=== PATIENT | male | born 1950 | race Two or more races ===

== ENCOUNTER 2016-03-27 21:28 | Inpatient (IN) | payer MEDICAID ==
[~2016-03-27] VITALS: Ht 170.2 cm; Wt 46.7 kg
[~2016-03-27 21:28] MED LIST: ACET-868 GT; ALBU2.5V38 IH; AMIN30LI2 GT; ASCO500T8 GT; BISA10SU8 RC; CALC1TAB30 GT; CRAN3875 GT; DEXT1DRO6 EACHEYE; DOCU50LI GT; EPOE1VIA6 IM; ESOM40CA GT; FERR1TAB44 GT; FOLI1TAB16 GT; HYDR-3326 GT; LACT10SO29 GT; MAGN400O4 GT; MAGN400T30 GT; MULT1TAB11 GT; NA P133E RC; ONDA4TAB5 GT; THIA100T13 GT; ZINC220T GT
[2016-03-27 22:30] LABS: BASOPHILS % (AUTO) 0.4 % (0.0-2.0); DIFF TOTAL % 100 %; EOSINOPHILS # (AUTO) 1.6 /CMM (0.0-0.7); EOSINOPHILS % (AUTO) 24.5 % (0.0-6.0); HEMATOCRIT 30 % (39-51); HEMOGLOBIN 9.7 g/dL (13.5-17.5); LYMPHOCYTES # (AUTO) 0.9 /CMM (0.8-4.8); LYMPHOCYTES % (AUTO) 13.5 % (20.0-44.0); MEAN CORPUSCULAR HEMOGLOBIN 32 PG (26.0-33.0); MEAN CORPUSCULAR HGB CONC 33 g/dl (31.0-36.0); MEAN CORPUSCULAR VOLUME 97 fL (80-96); MONOCYTES # (AUTO) 0.4 /CMM (0.1-1.30); MONOCYTES % (AUTO) 6.4 % (2.0-12.0); NEUTROPHILS # (AUTO) 3.5 /CMM (1.8-8.9); NEUTROPHILS % (AUTO) 55.2 % (43.0-81.0); PLATELET COUNT (AUTO) 183 /CMM (150-450); RED BLOOD CELL COUNT(AUTO) 3.06 MIL/uL (4.5-6.0); WHITE BLOOD COUNT (AUTO) 6.3 K/uL (4.3-11.0)
[2016-03-27 22:40] LABS: CREATININE 0.5 mg/dL (0.6-1.3); POTASSIUM 4.2 mmol/L (3.5-5.1)
[2016-03-27 22:46] LABS: BILIRUBIN,TOTAL 0.2 mg/dL (0.2-1.0); TOTAL PROTEIN, SERUM 7.6 g/dL (6.4-8.2)
[2016-03-27 23:27] LABS: INR 1.05 (0.87-1.13); PROTHROMBIN TIME 11.4 SECS (9.5-12.7)
[2016-03-28] VITALS: BP 97/61
[2016-03-28 00:04] LABS: ADD UA MICROSCOPIC YES; KETONES,URINE NEG (NEGATIVE); LEUKOCYTE ESTERASE ,URINE 3+ (NEGATIVE)
[2016-03-28 00:06] LABS: ADD URINE CULTURE YES; RBC,URINE TOO NUMEROUS TO COUN /HPF (0-2); WBC,URINE TOO NUMEROUS TO COUN /HPF (0-3)
[2016-03-28 00:33] LABS: ANISOCYTOSIS 1+; BAND % (MANUAL) 3 % (0.0-5.0); BASOPHILS % (MANUAL) 0 % (0.0-2.0); EOSINOPHILS % (MANUAL) 27 % (0-4); LYMPHOCYTES % (MANUAL) 17 % (16-48); PLATELET ESTIMATE ADEQUATE
[2016-03-28] MEDS ORDERED: CEFTRIAXONE 1GM BAG (ER ONLY) 50 ML IV ONE (01:26)
[2016-03-28] MEDS ORDERED: IV SET PRIMARY PUMP SET 1 EA INFUS.SET MC ONE ×2 (01:26→03:50)
[2016-03-28] MEDS ORDERED: CEFTRIAXONE 1GM BAG (ER ONLY) 1 GM/50 ML PIGGYBACK IV ONE (01:30)
[2016-03-28] MEDS ORDERED: MAG HYDROX/AL HYDROX/SIMETH 30 ML UDC PO PRN (02:30)
[2016-03-28] MEDS ORDERED: ZOLPIDEM TARTRATE 5 MG TABLET PO PRN (02:30)
[2016-03-28] MEDS ORDERED: ENOXAPARIN SODIUM 40 MG/0.4 ML DISP.SYRIN SQ SCH (02:30)
[2016-03-28] MEDS ORDERED: MAGNESIUM HYDROXIDE 30 ML UDC PO PRN (02:30)
[2016-03-28] MEDS ORDERED: Z GUARD REMEDY 2 OZ OINT TP PRN (02:30)
[2016-03-28] MEDS ORDERED: ONDANSETRON HCL/PF 4 MG/2 ML VIAL IVP PRN (02:30)
[2016-03-28] MEDS ORDERED: LEVOFLOXACIN 500 MG /D5W 100ML 100 ML IV SCH (02:30)
[2016-03-28 03:00] VITALS: BP 98/55
[2016-03-28] MEDS ORDERED: IV NS 0.9% 1,000 ML ONE (03:50)
[2016-03-28] MEDS ORDERED: LEVOFLOXACIN 500 MG /D5W 100ML 100 ML IV ONE (03:51)
[2016-03-28 04:00] VITALS: BP 110/72
[2016-03-28] MEDS ORDERED: ENOXAPARIN SODIUM 40 MG/0.4 ML DISP.SYRIN SQ ONE (04:00)
[2016-03-28] MEDS: IV NS 0.9% 1,000 ML IV PRN ×2 (04:05→23:02)
[2016-03-28] MEDS ORDERED: SECONDARY IV SET 1 EA INFUS.SET MC ONE ×2 (04:08→12:37)
[2016-03-28] MEDS ORDERED: PIPERACILLIN /TAZOBACTAM 3.375 G VIAL IV ONE (04:45)
[2016-03-28] MEDS ORDERED: IV D5W 100 ML IV ONE (04:45)
[2016-03-28] MEDS ORDERED: PIPERACILLIN /TAZOBACTAM 3.375 G in IV D5W 100 ML IV SCH (05:00)
[2016-03-28 08:00] VITALS: BP 94/57
[2016-03-28 09:16] LABS: BASOPHILS % (AUTO) 0.5 % (0.0-2.0); DIFF TOTAL % 100 %; EOSINOPHILS # (AUTO) 0.6 /CMM (0.0-0.7); EOSINOPHILS % (AUTO) 11.3 % (0.0-6.0); HEMATOCRIT 29 % (39-51); HEMOGLOBIN 9.7 g/dL (13.5-17.5); LYMPHOCYTES # (AUTO) 0.9 /CMM (0.8-4.8); LYMPHOCYTES % (AUTO) 15.6 % (20.0-44.0); MEAN CORPUSCULAR HEMOGLOBIN 32 PG (26.0-33.0); MEAN CORPUSCULAR HGB CONC 33 g/dl (31.0-36.0); MEAN CORPUSCULAR VOLUME 97 fL (80-96); MONOCYTES # (AUTO) 0.4 /CMM (0.1-1.30); MONOCYTES % (AUTO) 6.4 % (2.0-12.0); NEUTROPHILS # (AUTO) 3.7 /CMM (1.8-8.9); NEUTROPHILS % (AUTO) 66.2 % (43.0-81.0); PLATELET COUNT (AUTO) 176 /CMM (150-450); RED BLOOD CELL COUNT(AUTO) 3.02 MIL/uL (4.5-6.0); WHITE BLOOD COUNT (AUTO) 5.6 K/uL (4.3-11.0)
[2016-03-28 09:31] LABS: CALCIUM, SERUM 8.2 mg/dL (8.5-10.1); CREATININE 0.5 mg/dL (0.6-1.3); PHOSPHORUS 2.8 mg/dL (2.5-4.9); POTASSIUM 4.3 mmol/L (3.5-5.1)
[2016-03-28] MEDS ORDERED: FEE PK DOSING 1 MIN EA MC ONE (10:19)
[2016-03-28] MEDS: VANCOMYCIN 1 GM in IV D5W 250 ML IV SCH ×2 (12:30→23:01)
[2016-03-28] MEDS: PIPERACILLIN /TAZOBACTAM 3.375 G in IV D5W 50 ML IV SCH ×2 (12:30→18:09)
[2016-03-28] MEDS: GLYTROL 1,000 ML BAG GT PRN (12:30)
[2016-03-28] MEDS: PANTOPRAZOLE 40 MG VIAL IV SCH (12:30)
[2016-03-28 16:00] VITALS: BP 92/55
[2016-03-29] VITALS: BP 96/56
[2016-03-29] MEDS: PIPERACILLIN /TAZOBACTAM 3.375 G in IV D5W 50 ML IV SCH ×5 (00:54→23:15)
[2016-03-29] MEDS ORDERED: LEVOFLOXACIN 250 MG /D5W 50 ML 250 MG in PREMIX 1 EA IV SCH (04:00)
[2016-03-29 07:36] LABS: CALCIUM, SERUM 8.3 mg/dL (8.5-10.1); CREATININE 0.5 mg/dL (0.6-1.3)
[2016-03-29 08:00] VITALS: BP 98/76
[2016-03-29] MEDS: PANTOPRAZOLE 40 MG VIAL IV SCH (08:58)
[2016-03-29] MEDS: ENOXAPARIN SODIUM 40 MG/0.4 ML DISP.SYRIN SQ SCH (08:59)
[2016-03-29] MEDS: VANCOMYCIN 1 GM in IV D5W 250 ML IV SCH ×2 (09:06→21:51)
[2016-03-29] MEDS: GLYTROL 1,000 ML BAG GT PRN (11:54)
[2016-03-29 12:00] VITALS: BP 97/57
[2016-03-29 14:11] LABS: IRON, SERUM 31 ug/dl (50-175); PERCENT SATURATION 23 % (14-33); TOTAL IRON BINDING CAPACITY 133 ug/dl (250-450)
[2016-03-29] MEDS ORDERED: ZINC220C8 GT (15:25)
[2016-03-29] MEDS ORDERED: FERR220S2 GT (15:25)
[2016-03-29] MEDS ORDERED: NUT.237L36 GT (15:25)
[2016-03-29] MEDS ORDERED: OMEP40CA37 GT (15:25)
[2016-03-29] MEDS ORDERED: DOCU50LI GT (15:25)
[2016-03-29] MEDS ORDERED: LACT10SO7 GT (15:25)
[2016-03-29] MEDS ORDERED: ASCO500S2 GT (15:25)
[2016-03-29] MEDS ORDERED: ACET-2605 GT (15:25)
[2016-03-29] MEDS ORDERED: ARGI1POW13 GT (15:25)
[2016-03-29] MEDS ORDERED: CLON0.1T GT (15:25)
[2016-03-29] MEDS ORDERED: IPRA0.2S9 IH ×2 (15:25)
[2016-03-29] MEDS ORDERED: MAG30ORA GT (15:25)
[2016-03-29 16:00] VITALS: BP 107/68
[2016-03-29] MEDS: IV NS 0.9% 1,000 ML IV PRN (18:48)
[2016-03-29 20:00] VITALS: BP 97/64
[2016-03-29] MEDS ORDERED: IVERMECTIN 3 MG TABLET PO ONE (20:00)
[2016-03-29] MEDS ORDERED: PERMETHRIN 5% CRM 60 GM TUBE TP ONE (20:00)
[2016-03-29] MEDS: LORATADINE 10 MG TABLET PO SCH (20:40)
[2016-03-30 04:00] VITALS: BP 114/67
[2016-03-30] MEDS: PIPERACILLIN /TAZOBACTAM 3.375 G in IV D5W 50 ML IV SCH ×2 (05:00→11:10)
[2016-03-30] MEDS: GLYTROL 1,000 ML BAG GT PRN (05:43)
[2016-03-30 08:00] VITALS: BP 113/54
[2016-03-30] MEDS: PANTOPRAZOLE 40 MG VIAL IV SCH (08:27)
[2016-03-30] MEDS: LORATADINE 10 MG TABLET PO SCH (08:27)
[2016-03-30] MEDS: ENOXAPARIN SODIUM 40 MG/0.4 ML DISP.SYRIN SQ SCH (08:29)
[2016-03-30 08:52] LABS: BASOPHILS % (AUTO) 0.1 % (0.0-2.0); EOSINOPHILS # (AUTO) 1.8 /CMM (0.0-0.7); HEMATOCRIT 25 % (39-51); HEMOGLOBIN 8.3 g/dL (13.5-17.5); LYMPHOCYTES # (AUTO) 1.3 /CMM (0.8-4.8); LYMPHOCYTES % (AUTO) 23.6 % (20.0-44.0); MEAN CORPUSCULAR HEMOGLOBIN 32 PG (26.0-33.0); MEAN CORPUSCULAR HGB CONC 33 g/dl (31.0-36.0); MEAN CORPUSCULAR VOLUME 98 fL (80-96); MONOCYTES # (AUTO) 0.5 /CMM (0.1-1.30); MONOCYTES % (AUTO) 8.4 % (2.0-12.0); NEUTROPHILS # (AUTO) 1.9 /CMM (1.8-8.9); NEUTROPHILS % (AUTO) 34.9 % (43.0-81.0); PLATELET COUNT (AUTO) 190 /CMM (150-450); RED BLOOD CELL COUNT(AUTO) 2.58 MIL/uL (4.5-6.0); WHITE BLOOD COUNT (AUTO) 5.6 K/uL (4.3-11.0)
[2016-03-30 08:58] LABS: DIFF TOTAL % 100 %
[2016-03-30 09:22] LABS: PHOSPHORUS 2.9 mg/dL (2.5-4.9)
[2016-03-30] MEDS: VANCOMYCIN 1 GM in IV D5W 250 ML IV SCH ×2 (09:27→22:28)
[2016-03-30 09:43] LABS: CALCIUM, SERUM 8.3 mg/dL (8.5-10.1); CREATININE 0.5 mg/dL (0.6-1.3); EOSINOPHILS % (MANUAL) 27 % (0-4); LYMPHOCYTES % (MANUAL) 28 % (16-48); POTASSIUM 3.9 mmol/L (3.5-5.1)
[2016-03-30 09:44] LABS: ANISOCYTOSIS 1+; PLATELET ESTIMATE ADEQUATE
[2016-03-30] MEDS ORDERED: HYDROGEL DRESSING 90 GM TUBE TP PRN (11:00)
[2016-03-30] MEDS: IV NS 0.9% 1,000 ML IV PRN (11:10)
[2016-03-30] MEDS: HYDROGEL DRESSING 90 GM TUBE TP SCH (12:44)
[2016-03-30] MEDS: CADEXOMER IODINE 40 GM TUBE TP SCH (12:44)
[2016-03-30] MEDS: MEROPENEM 500 MG in IV NS 0.9% 50 ML IV SCH (21:36)
[2016-03-31] MEDS: GLYTROL 1,000 ML BAG GT PRN (03:42)
[2016-03-31] MEDS: MEROPENEM 500 MG in IV NS 0.9% 50 ML IV SCH ×3 (04:09→21:56)
[2016-03-31 07:49] LABS: CALCIUM, SERUM 8.2 mg/dL (8.5-10.1); CREATININE 0.4 mg/dL (0.6-1.3)
[2016-03-31 08:00] VITALS: BP 124/70
[2016-03-31] MEDS: PANTOPRAZOLE 40 MG VIAL IV SCH (08:17)
[2016-03-31] MEDS: ENOXAPARIN SODIUM 40 MG/0.4 ML DISP.SYRIN SQ SCH (08:17)
[2016-03-31] MEDS: LORATADINE 10 MG TABLET PO SCH (08:17)
[2016-03-31] MEDS: CADEXOMER IODINE 40 GM TUBE TP SCH (08:18)
[2016-03-31] MEDS: HYDROGEL DRESSING 90 GM TUBE TP SCH (08:19)
[2016-03-31] MEDS: VANCOMYCIN 1 GM in IV D5W 250 ML IV SCH ×2 (10:16→21:57)
[2016-03-31] MEDS: IV NS 0.9% 1,000 ML IV PRN (12:35)
[2016-03-31 16:00] VITALS: BP 125/72
[2016-03-31 20:00] VITALS: BP 125/79
[2016-04-01] MEDS ORDERED: IV SET PRIMARY PUMP SET 1 EA INFUS.SET MC ONE (03:52)
[2016-04-01] MEDS ORDERED: SECONDARY IV SET 1 EA INFUS.SET MC ONE ×2 (03:52→11:40)
[2016-04-01 04:00] VITALS: BP 126/71
[2016-04-01] MEDS: IV NS 0.9% 1,000 ML IV PRN (04:06)
[2016-04-01] MEDS: GLYTROL 1,000 ML BAG GT PRN ×2 (04:06→21:15)
[2016-04-01] MEDS: MEROPENEM 500 MG in IV NS 0.9% 50 ML IV SCH ×3 (04:06→21:15)
[2016-04-01 07:19] LABS: BASOPHILS % (AUTO) 0.1 % (0.0-2.0); EOSINOPHILS # (AUTO) 2.2 /CMM (0.0-0.7); HEMATOCRIT 28 % (39-51); HEMOGLOBIN 9.4 g/dL (13.5-17.5); LYMPHOCYTES # (AUTO) 1.8 /CMM (0.8-4.8); MEAN CORPUSCULAR HEMOGLOBIN 33 PG (26.0-33.0); MEAN CORPUSCULAR HGB CONC 33 g/dl (31.0-36.0); MEAN CORPUSCULAR VOLUME 98 fL (80-96); MONOCYTES # (AUTO) 0.6 /CMM (0.1-1.30); MONOCYTES % (AUTO) 7.7 % (2.0-12.0); NEUTROPHILS # (AUTO) 3.6 /CMM (1.8-8.9); NEUTROPHILS % (AUTO) 43.2 % (43.0-81.0); PLATELET COUNT (AUTO) 265 /CMM (150-450); RED BLOOD CELL COUNT(AUTO) 2.89 MIL/uL (4.5-6.0); WHITE BLOOD COUNT (AUTO) 8.3 K/uL (4.3-11.0)
[2016-04-01 07:26] LABS: DIFF TOTAL % 100 %
[2016-04-01 07:56] LABS: CALCIUM, SERUM 8.4 mg/dL (8.5-10.1); CREATININE 0.4 mg/dL (0.6-1.3); PHOSPHORUS 2.7 mg/dL (2.5-4.9); POTASSIUM 3.8 mmol/L (3.5-5.1)
[2016-04-01 08:49] LABS: ANISOCYTOSIS 1+; BAND % (MANUAL) 1 % (0.0-5.0); EOSINOPHILS % (MANUAL) 25 % (0-4); LYMPHOCYTES % (MANUAL) 28 % (16-48); PLATELET ESTIMATE ADEQUATE
[2016-04-01] MEDS: HYDROGEL DRESSING 90 GM TUBE TP SCH (09:00)
[2016-04-01] MEDS: CADEXOMER IODINE 40 GM TUBE TP SCH (09:00)
[2016-04-01] MEDS: PANTOPRAZOLE 40 MG VIAL IV SCH (10:13)
[2016-04-01] MEDS: LORATADINE 10 MG TABLET PO SCH (10:13)
[2016-04-01] MEDS: ENOXAPARIN SODIUM 40 MG/0.4 ML DISP.SYRIN SQ SCH (10:14)
[2016-04-01] MEDS: VANCOMYCIN 1 GM in IV D5W 250 ML IV SCH ×2 (10:31→22:01)
[2016-04-01] MEDS: Magnesium 1GM/D5W 100ML PREMIX 100 ML IV SCH ×2 (11:45→12:47)
[2016-04-01 12:00] VITALS: BP 127/79
[2016-04-01] MEDS: LACTOBACILLUS RHAMNOSUS GG 1 EACH CAP.SPRINK GT SCH (17:00)
[2016-04-01 17:12] VITALS: BP 122/73
[2016-04-01 20:00] VITALS: BP 136/85
[2016-04-02 04:00] VITALS: BP 125/61
[2016-04-02] MEDS: MEROPENEM 500 MG in IV NS 0.9% 50 ML IV SCH ×3 (04:53→21:24)
[2016-04-02] MEDS: IV NS 0.9% 1,000 ML IV PRN ×2 (04:53→21:25)
[2016-04-02 06:55] LABS: BASOPHILS % (AUTO) 0.3 % (0.0-2.0); DIFF TOTAL % 100 %; HEMATOCRIT 26 % (39-51); HEMOGLOBIN 8.8 g/dL (13.5-17.5); LYMPHOCYTES # (AUTO) 1.4 /CMM (0.8-4.8); LYMPHOCYTES % (AUTO) 17.7 % (20.0-44.0); MEAN CORPUSCULAR HEMOGLOBIN 33 PG (26.0-33.0); MEAN CORPUSCULAR HGB CONC 34 g/dl (31.0-36.0); MEAN CORPUSCULAR VOLUME 98 fL (80-96); MONOCYTES # (AUTO) 0.5 /CMM (0.1-1.30); MONOCYTES % (AUTO) 6.1 % (2.0-12.0); NEUTROPHILS # (AUTO) 4.1 /CMM (1.8-8.9); NEUTROPHILS % (AUTO) 50.9 % (43.0-81.0); PLATELET COUNT (AUTO) 242 /CMM (150-450); RED BLOOD CELL COUNT(AUTO) 2.67 MIL/uL (4.5-6.0); WHITE BLOOD COUNT (AUTO) 8.1 K/uL (4.3-11.0)
[2016-04-02 07:10] LABS: CALCIUM, SERUM 8.1 mg/dL (8.5-10.1); CREATININE 0.4 mg/dL (0.6-1.3); PHOSPHORUS 2.8 mg/dL (2.5-4.9); POTASSIUM 3.6 mmol/L (3.5-5.1)
[2016-04-02 08:00] VITALS: BP 98/58
[2016-04-02] MEDS: PANTOPRAZOLE 40 MG VIAL IV SCH (08:58)
[2016-04-02] MEDS: LORATADINE 10 MG TABLET PO SCH (09:00)
[2016-04-02] MEDS: CADEXOMER IODINE 40 GM TUBE TP SCH (09:00)
[2016-04-02] MEDS: VANCOMYCIN 1 GM in IV D5W 250 ML IV SCH ×2 (09:00→22:15)
[2016-04-02] MEDS: HYDROGEL DRESSING 90 GM TUBE TP SCH (09:00)
[2016-04-02 09:25] LABS: ANISOCYTOSIS 1+; BAND % (MANUAL) 2 % (0.0-5.0); EOSINOPHILS % (MANUAL) 27 % (0-4); LYMPHOCYTES % (MANUAL) 19 % (16-48); PLATELET ESTIMATE ADEQUATE
[2016-04-02 09:26] LABS: HYPOCHROMASIA 1+
[2016-04-02] MEDS: ENOXAPARIN SODIUM 40 MG/0.4 ML DISP.SYRIN SQ SCH (10:56)
[2016-04-02] MEDS: LACTOBACILLUS RHAMNOSUS GG 1 EACH CAP.SPRINK GT SCH ×2 (10:56→17:00)
[2016-04-02 12:00] VITALS: BP 99/57
[2016-04-02 16:00] VITALS: BP 150/60
[2016-04-02 20:38] VITALS: BP 150/60
[2016-04-02] MEDS: GLYTROL 1,000 ML BAG GT PRN (22:15)
[2016-04-03 04:00] VITALS: BP 123/68
[2016-04-03] MEDS: MEROPENEM 500 MG in IV NS 0.9% 50 ML IV SCH ×3 (04:59→21:32)
[2016-04-03 08:00] VITALS: BP 125/68
[2016-04-03 08:11] LABS: BASOPHILS % (AUTO) 0.4 % (0.0-2.0); DIFF TOTAL % 100 %; EOSINOPHILS # (AUTO) 1.6 /CMM (0.0-0.7); EOSINOPHILS % (AUTO) 21.7 % (0.0-6.0); HEMATOCRIT 30 % (39-51); HEMOGLOBIN 9.9 g/dL (13.5-17.5); LYMPHOCYTES # (AUTO) 1.2 /CMM (0.8-4.8); LYMPHOCYTES % (AUTO) 16.1 % (20.0-44.0); MEAN CORPUSCULAR HEMOGLOBIN 33 PG (26.0-33.0); MEAN CORPUSCULAR HGB CONC 33 g/dl (31.0-36.0); MEAN CORPUSCULAR VOLUME 98 fL (80-96); MONOCYTES # (AUTO) 0.3 /CMM (0.1-1.30); MONOCYTES % (AUTO) 4.1 % (2.0-12.0); NEUTROPHILS # (AUTO) 4.2 /CMM (1.8-8.9); NEUTROPHILS % (AUTO) 57.7 % (43.0-81.0); PLATELET COUNT (AUTO) 262 /CMM (150-450); RED BLOOD CELL COUNT(AUTO) 3.03 MIL/uL (4.5-6.0); WHITE BLOOD COUNT (AUTO) 7.4 K/uL (4.3-11.0)
[2016-04-03 08:24] LABS: CALCIUM, SERUM 8.2 mg/dL (8.5-10.1); CREATININE 0.4 mg/dL (0.6-1.3); PHOSPHORUS 2.5 mg/dL (2.5-4.9); POTASSIUM 4.1 mmol/L (3.5-5.1)
[2016-04-03] MEDS: VANCOMYCIN 1 GM in IV D5W 250 ML IV SCH (09:23)
[2016-04-03] MEDS: CADEXOMER IODINE 40 GM TUBE TP SCH (09:25)
[2016-04-03] MEDS: PANTOPRAZOLE 40 MG VIAL IV SCH (09:25)
[2016-04-03] MEDS: LACTOBACILLUS RHAMNOSUS GG 1 EACH CAP.SPRINK GT SCH ×2 (09:25→16:39)
[2016-04-03] MEDS: HYDROGEL DRESSING 90 GM TUBE TP SCH (09:25)
[2016-04-03] MEDS: LORATADINE 10 MG TABLET PO SCH (09:25)
[2016-04-03] MEDS: ENOXAPARIN SODIUM 40 MG/0.4 ML DISP.SYRIN SQ SCH (09:26)
[2016-04-03] MEDS ORDERED: SECONDARY IV SET 1 EA INFUS.SET MC ONE (09:37)
[2016-04-03] MEDS: Magnesium 1GM/D5W 100ML PREMIX 100 ML IV SCH ×2 (09:40→11:36)
[2016-04-03 10:54] LABS: BAND % (MANUAL) 4 % (0.0-5.0); LYMPHOCYTES % (MANUAL) 15 % (16-48)
[2016-04-03 10:55] LABS: ANISOCYTOSIS 1+; EOSINOPHILS % (MANUAL) 30 % (0-4); PLATELET ESTIMATE ADEQUATE
[2016-04-03] MEDS ORDERED: Magnesium 1GM/D5W 100ML PREMIX 100 ML IV SCH (11:30)
[2016-04-03 16:00] VITALS: BP 116/86
[2016-04-03] MEDS: GLYTROL 1,000 ML BAG GT PRN (16:40)
[2016-04-03] MEDS: IV NS 0.9% 1,000 ML IV PRN (16:44)
[2016-04-03 20:00] VITALS: BP 119/70
[2016-04-03] MEDS: VANCOMYCIN 0.75 GM in IV D5W 250 ML IV SCH (21:33)
[2016-04-04 04:00] VITALS: BP 115/71
[2016-04-04] MEDS: MEROPENEM 500 MG in IV NS 0.9% 50 ML IV SCH ×3 (04:09→21:25)
[2016-04-04] MEDS: IV NS 0.9% 1,000 ML IV PRN ×2 (04:09→21:21)
[2016-04-04 06:26] LABS: BASOPHILS % (AUTO) 0.2 % (0.0-2.0); DIFF TOTAL % 100 %; EOSINOPHILS # (AUTO) 1.4 /CMM (0.0-0.7); EOSINOPHILS % (AUTO) 21.7 % (0.0-6.0); HEMATOCRIT 30 % (39-51); LYMPHOCYTES # (AUTO) 1.7 /CMM (0.8-4.8); LYMPHOCYTES % (AUTO) 26.8 % (20.0-44.0); MEAN CORPUSCULAR HEMOGLOBIN 33 PG (26.0-33.0); MEAN CORPUSCULAR HGB CONC 33 g/dl (31.0-36.0); MEAN CORPUSCULAR VOLUME 99 fL (80-96); MONOCYTES # (AUTO) 0.4 /CMM (0.1-1.30); MONOCYTES % (AUTO) 5.9 % (2.0-12.0); NEUTROPHILS % (AUTO) 45.4 % (43.0-81.0); PLATELET COUNT (AUTO) 279 /CMM (150-450); RED BLOOD CELL COUNT(AUTO) 3.05 MIL/uL (4.5-6.0); WHITE BLOOD COUNT (AUTO) 6.5 K/uL (4.3-11.0)
[2016-04-04] MEDS: GLYTROL 1,000 ML BAG GT PRN (06:32)
[2016-04-04 06:47] LABS: CALCIUM, SERUM 8.4 mg/dL (8.5-10.1); CREATININE 0.5 mg/dL (0.6-1.3); PHOSPHORUS 2.9 mg/dL (2.5-4.9); POTASSIUM 4.3 mmol/L (3.5-5.1)
[2016-04-04 08:00] VITALS: BP 96/61
[2016-04-04] MEDS: LORATADINE 10 MG TABLET PO SCH (08:31)
[2016-04-04] MEDS: PANTOPRAZOLE 40 MG VIAL IV SCH (08:31)
[2016-04-04] MEDS: ENOXAPARIN SODIUM 40 MG/0.4 ML DISP.SYRIN SQ SCH (08:32)
[2016-04-04] MEDS: HYDROGEL DRESSING 90 GM TUBE TP SCH (08:33)
[2016-04-04] MEDS: LACTOBACILLUS RHAMNOSUS GG 1 EACH CAP.SPRINK GT SCH ×2 (08:34→16:17)
[2016-04-04] MEDS: CADEXOMER IODINE 40 GM TUBE TP SCH (08:34)
[2016-04-04] MEDS: VANCOMYCIN 0.75 GM in IV D5W 250 ML IV SCH ×2 (09:00→21:26)
[2016-04-04] MEDS ORDERED: RXVAN XX (10:41)
[2016-04-04] MEDS ORDERED: MERO500V IV (10:41)
[2016-04-04 11:50] LABS: EOSINOPHILS % (MANUAL) 19 % (0-4); LYMPHOCYTES % (MANUAL) 30 % (16-48)
[2016-04-04 11:51] LABS: ANISOCYTOSIS 2+; PLATELET ESTIMATE ADEQUATE
[2016-04-04 12:00] VITALS: BP 119/69
[2016-04-04] MEDS ORDERED: LIDOCAINE 1%-EPI 1:100,000 20 ML VIAL TP ONE (13:30)
[2016-04-04] MEDS ORDERED: SILVER NITRATE APPLICATOR 1 EA BOX TP ONE ×2 (13:30)
[2016-04-04] MEDS ORDERED: GLYTROL 1,000 ML BAG GT PRN (15:53)
[2016-04-04 16:00] VITALS: BP 119/69
[2016-04-04] MEDS ORDERED: IVERMECTIN 3 MG TABLET PO ONE (17:00)
[2016-04-04] MEDS ORDERED: PERMETHRIN 5% CRM 60 GM TUBE TP ONE (17:00)
[2016-04-04 20:00] VITALS: BP 125/72
[2016-04-05] MEDS: GLYTROL 1,000 ML BAG GT PRN ×2 (01:20→16:38)
[2016-04-05 04:00] VITALS: BP 116/67
[2016-04-05] MEDS: MEROPENEM 500 MG in IV NS 0.9% 50 ML IV SCH ×3 (05:51→21:32)
[2016-04-05 07:21] LABS: CALCIUM, SERUM 8.5 mg/dL (8.5-10.1); CREATININE 0.4 mg/dL (0.6-1.3); POTASSIUM 4.3 mmol/L (3.5-5.1)
[2016-04-05 08:00] VITALS: BP 105/65
[2016-04-05] MEDS: CADEXOMER IODINE 40 GM TUBE TP SCH (09:30)
[2016-04-05] MEDS: HYDROGEL DRESSING 90 GM TUBE TP SCH (09:30)
[2016-04-05] MEDS: LORATADINE 10 MG TABLET PO SCH (09:30)
[2016-04-05] MEDS: PANTOPRAZOLE 40 MG VIAL IV SCH (09:30)
[2016-04-05] MEDS: LACTOBACILLUS RHAMNOSUS GG 1 EACH CAP.SPRINK GT SCH ×2 (09:30→16:39)
[2016-04-05] MEDS: VANCOMYCIN 0.75 GM in IV D5W 250 ML IV SCH ×2 (09:42→21:31)
[2016-04-05 16:00] VITALS: BP 97/60
[2016-04-05] MEDS: IV NS 0.9% 1,000 ML IV PRN (16:38)
[2016-04-06 04:00] VITALS: BP 128/77
[2016-04-06] MEDS: GLYTROL 1,000 ML BAG GT PRN ×2 (05:02→19:01)
[2016-04-06] MEDS: MEROPENEM 500 MG in IV NS 0.9% 50 ML IV SCH ×3 (05:02→21:12)
[2016-04-06] MEDS: IV NS 0.9% 1,000 ML IV PRN ×2 (05:03→21:13)
[2016-04-06 07:28] LABS: CALCIUM, SERUM 8.5 mg/dL (8.5-10.1); CREATININE 0.5 mg/dL (0.6-1.3); POTASSIUM 4.2 mmol/L (3.5-5.1)
[2016-04-06 08:00] VITALS: BP 117/67
[2016-04-06] MEDS: LORATADINE 10 MG TABLET PO SCH (09:15)
[2016-04-06] MEDS: PANTOPRAZOLE 40 MG VIAL IV SCH (09:15)
[2016-04-06] MEDS: LACTOBACILLUS RHAMNOSUS GG 1 EACH CAP.SPRINK GT SCH ×2 (09:15→18:59)
[2016-04-06] MEDS: CADEXOMER IODINE 40 GM TUBE TP SCH (09:16)
[2016-04-06] MEDS: HYDROGEL DRESSING 90 GM TUBE TP SCH (09:16)
[2016-04-06] MEDS: VANCOMYCIN 0.75 GM in IV D5W 250 ML IV SCH ×2 (10:19→21:12)
[2016-04-06 16:00] VITALS: BP 104/62
[2016-04-06 20:00] VITALS: BP 111/63
[2016-04-06] MEDS ORDERED: IV SET PRIMARY PUMP SET 1 EA INFUS.SET MC ONE (20:48)
[2016-04-07] MEDS: MEROPENEM 500 MG in IV NS 0.9% 50 ML IV SCH (05:21)
[2016-04-07] MEDS: GLYTROL 1,000 ML BAG GT PRN ×2 (05:21→17:31)
[2016-04-07 07:24] LABS: CALCIUM, SERUM 8.5 mg/dL (8.5-10.1); CREATININE 0.4 mg/dL (0.6-1.3); POTASSIUM 4.3 mmol/L (3.5-5.1)
[2016-04-07 08:00] VITALS: BP 113/73
[2016-04-07] MEDS: LORATADINE 10 MG TABLET PO SCH (08:19)
[2016-04-07] MEDS: PANTOPRAZOLE 40 MG VIAL IV SCH (08:19)
[2016-04-07] MEDS: LACTOBACILLUS RHAMNOSUS GG 1 EACH CAP.SPRINK GT SCH ×2 (08:20→16:57)
[2016-04-07] MEDS: CADEXOMER IODINE 40 GM TUBE TP SCH (08:21)
[2016-04-07] MEDS: HYDROGEL DRESSING 90 GM TUBE TP SCH (08:21)
[2016-04-07 16:00] VITALS: BP 98/64
[2016-04-07 20:00] VITALS: BP 126/40
[2016-04-07 22:01] VITALS: BP 126/40
[2016-04-07 22:13] VITALS: BP 126/40
[2016-04-08] MEDS: IV NS 0.9% 1,000 ML IV PRN (02:53)
[2016-04-08] MEDS: GLYTROL 1,000 ML BAG GT PRN (02:53)
[2016-04-08] MEDS ORDERED: IV SET PRIMARY PUMP SET 1 EA INFUS.SET MC ONE (02:54)
[2016-04-08 04:00] VITALS: BP 104/61
[2016-04-08 07:01] LABS: CALCIUM, SERUM 8.3 mg/dL (8.5-10.1); CREATININE 0.4 mg/dL (0.6-1.3); POTASSIUM 4.3 mmol/L (3.5-5.1)
[2016-04-08 08:00] VITALS: BP 109/61
[2016-04-08] MEDS: LACTOBACILLUS RHAMNOSUS GG 1 EACH CAP.SPRINK GT SCH ×2 (08:09→17:40)
[2016-04-08] MEDS: LORATADINE 10 MG TABLET PO SCH (08:09)
[2016-04-08] MEDS: PANTOPRAZOLE 40 MG VIAL IV SCH (08:09)
[2016-04-08] MEDS: CADEXOMER IODINE 40 GM TUBE TP SCH (08:10)
[2016-04-08] MEDS: HYDROGEL DRESSING 90 GM TUBE TP SCH (08:10)
[2016-04-08] MEDS: ACETAMINOPHEN 325 MG TABLET PO PRN (10:35)
[2016-04-08 16:00] VITALS: BP 105/57
[2016-04-08] MEDS: ASCORBIC ACID SYRUP 500 MG/5 ML UDC PO SCH (16:00)
[2016-04-08] MEDS: MULTIVITAMIN LIQ 5 ML UDC GT SCH (17:40)
[2016-04-08 20:00] VITALS: BP_SYST 104; BP_DIAS 38; BP_DIAS 44
[2016-04-08] MEDS ORDERED: IV NS 0.9% 1,000 ML ONE (20:57)
[2016-04-09 04:00] VITALS: BP 99/48
[2016-04-09] MEDS: GLYTROL 1,000 ML BAG GT PRN ×2 (05:16→17:05)
[2016-04-09 08:00] VITALS: BP 102/71
[2016-04-09] MEDS: ASCORBIC ACID SYRUP 500 MG/5 ML UDC PO SCH (09:00)
[2016-04-09] MEDS: LORATADINE 10 MG TABLET PO SCH (09:06)
[2016-04-09] MEDS: LACTOBACILLUS RHAMNOSUS GG 1 EACH CAP.SPRINK GT SCH ×2 (09:06→16:28)
[2016-04-09] MEDS: CADEXOMER IODINE 40 GM TUBE TP SCH (09:06)
[2016-04-09] MEDS: PANTOPRAZOLE 40 MG VIAL IV SCH (09:06)
[2016-04-09] MEDS: MULTIVITAMIN LIQ 5 ML UDC GT SCH (09:06)
[2016-04-09] MEDS: HYDROGEL DRESSING 90 GM TUBE TP SCH (09:07)
[2016-04-09 12:00] VITALS: BP 107/67
[2016-04-09 16:00] VITALS: BP 105/71
[2016-04-09 20:00] VITALS: BP 106/69
[2016-04-10 04:00] VITALS: BP 117/77
[2016-04-10 08:00] VITALS: BP 103/56
[2016-04-10] MEDS: ASCORBIC ACID 500 MG TABLET PO SCH (09:46)
[2016-04-10] MEDS: LACTOBACILLUS RHAMNOSUS GG 1 EACH CAP.SPRINK GT SCH ×2 (09:46→17:17)
[2016-04-10] MEDS: MULTIVITAMIN LIQ 5 ML UDC GT SCH (09:46)
[2016-04-10] MEDS: LORATADINE 10 MG TABLET PO SCH (09:46)
[2016-04-10] MEDS: PANTOPRAZOLE 40 MG VIAL IV SCH (09:46)
[2016-04-10] MEDS: CADEXOMER IODINE 40 GM TUBE TP SCH (09:47)
[2016-04-10] MEDS: HYDROGEL DRESSING 90 GM TUBE TP SCH (09:47)
[2016-04-10] MEDS: GLYTROL 1,000 ML BAG GT PRN (09:51)
[2016-04-10 16:00] VITALS: BP 124/74
[2016-04-10 20:00] VITALS: BP 113/71
[2016-04-11 04:00] VITALS: BP 99/67
[2016-04-11] MEDS: ACETAMINOPHEN 325 MG TABLET PO PRN (04:59)
[2016-04-11] MEDS: GLYTROL 1,000 ML BAG GT PRN (04:59)
[2016-04-11 08:00] VITALS: BP 118/75
[2016-04-11] MEDS: LORATADINE 10 MG TABLET PO SCH (09:45)
[2016-04-11] MEDS: CADEXOMER IODINE 40 GM TUBE TP SCH (09:45)
[2016-04-11] MEDS: MULTIVITAMIN LIQ 5 ML UDC GT SCH (09:45)
[2016-04-11] MEDS: LACTOBACILLUS RHAMNOSUS GG 1 EACH CAP.SPRINK GT SCH (09:45)
[2016-04-11] MEDS: HYDROGEL DRESSING 90 GM TUBE TP SCH (09:45)
[2016-04-11] MEDS: PANTOPRAZOLE 40 MG VIAL IV SCH (09:45)
[2016-04-11] MEDS: ASCORBIC ACID 500 MG TABLET PO SCH (09:45)
== END 2016-04-11 11:30 | DRG 720 ==
LOC: ER 21:30 → MEDSG1 03-28 01:57
PROVIDERS: ADMIT Family Medicine; ATTEND Internal Medicine
PROC: 0JB90ZZ Excision of Buttock Subcutaneous Tissue and Fascia, Open Approach (ICD-10-PCS; principal; 2016-04-04)
PROC: 05H533Z Insertion of Infusion Device into Right Subclavian Vein, Percutaneous Approach (ICD-10-PCS; 2016-04-05)
DX: A41.9 Sepsis, unspecified organism (principal); E43 Unspecified severe protein-calorie malnutrition; G93.41 Metabolic encephalopathy; L89.224 Pressure ulcer of left hip, stage 4; L89.304 Pressure ulcer of unspecified buttock, stage 4; J15.6 Pneumonia due to other Gram-negative bacteria; Z99.11 Dependence on respirator [ventilator] status; J18.9 Pneumonia, unspecified organism; J96.11 Chronic respiratory failure with hypoxia; R53.2 Functional quadriplegia; K70.30 Alcoholic cirrhosis of liver without ascites; Z93.0 Tracheostomy status; N39.0 Urinary tract infection, site not specified; D63.8 Anemia in other chronic diseases classified elsewhere; E87.1 Hypo-osmolality and hyponatremia; R13.10 Dysphagia, unspecified; Z93.1 Gastrostomy status; Z66 Do not resuscitate; B96.4 Proteus (mirabilis) (morganii) as the cause of diseases classified elsewhere; Y95 Nosocomial condition; B95.2 Enterococcus as the cause of diseases classified elsewhere; D50.9 Iron deficiency anemia, unspecified; R64 Cachexia; D53.1 Other megaloblastic anemias, not elsewhere classified; K21.9 Gastro-esophageal reflux disease without esophagitis; S81.801A Unspecified open wound, right lower leg, initial encounter; Z86.718 Personal history of other venous thrombosis and embolism; Z68.1 Body mass index [BMI] 19.9 or less, adult; R65.20 Severe sepsis without septic shock
CPT/HCPCS: 31720; 36415; 70450-TC; 71010-TC; 80048-TC; 80053-TC; 80202-TC; 81000-TC; 82272-TC; 83540-TC; 83735-TC; 84100-TC; 85025-TC; 85610-TC; 86850-TC; 86901; 86921-TC; 87040-TC; 87081-TC; 87086-TC; 87186-TC; 94640-TC; 94799-TC; A4216; A4349; A4606; A6248; A6253; A6402; A6403; C9113; J0696; J1650; J1956; J2185; J2543; J3370; J3475; J3490; J7030; J7060; Z7610

== ENCOUNTER 2016-04-08 15:29 | Inpatient (IN) | payer MEDICAID ==
[~2016-04-08] VITALS: Ht 170.2 cm; Wt 48.1 kg
[~2016-04-08 15:29] MED LIST changes: +ACET-2605 GT; +ARGI1POW13 GT; +ASCO500S2 GT; -ASCO500T8 GT; +CLON0.1T GT; -DEXT1DRO6 EACHEYE; -EPOE1VIA6 IM; -FERR1TAB44 GT; +FERR220S2 GT; +IPRA0.2S9 IH; -LACT10SO29 GT; +LACT10SO7 GT; +MAG30ORA GT; +MERO500V IV; +NUT.237L36 GT; +OMEP40CA37 GT; -ONDA4TAB5 GT; +RXVAN XX; +ZINC220C8 GT; -ZINC220T GT
[2016-04-11] MEDS ORDERED: IPRATROPIUM NEB FS 0.5 MG/2.5 ML AMPUL.NEB IH PRN (15:00)
[2016-04-11] MEDS ORDERED: ONDANSETRON HCL 4 MG/5 ML SOLUTION GT PRN (15:00)
[2016-04-11] MEDS ORDERED: ACETAMINOPHEN 650 MG/20.3 ML UDC GT PRN (15:00)
[2016-04-11] MEDS ORDERED: MAG HYDROX/AL HYDROX/SIMETH 30 ML UDC GT PRN (15:00)
[2016-04-11] MEDS ORDERED: ALBUTEROL FS 2.5 MG/0.5 ML VIAL.NEB NEB PRN (15:00)
[2016-04-11] MEDS ORDERED: [UNRECOGNIZED DRUG - SUPPLY] TP PRN (17:00)
[2016-04-11] MEDS: LACTOBACILLUS RHAMNOSUS GG 1 EACH CAP.SPRINK GT SCH (17:00)
[2016-04-11] MEDS ORDERED: [UNRECOGNIZED DRUG - SUPPLY] TP PRN (17:00)
[2016-04-11] MEDS ORDERED: TUBERCULIN,PURIF.PROT.DERIV. 5 TU/0.1 ML VIAL ID SCH (17:00)
[2016-04-11] MEDS ORDERED: [UNRECOGNIZED DRUG - SUPPLY] TP PRN (17:00)
[2016-04-11] MEDS ORDERED: CADEXOMER IODINE 40 GM TUBE TP PRN ×2 (17:00)
[2016-04-11] MEDS ORDERED: [UNRECOGNIZED DRUG - SUPPLY] TP PRN (17:00)
[2016-04-11] MEDS: ALBUTEROL FS 2.5 MG/0.5 ML VIAL.NEB NEB SCH (19:26)
[2016-04-11] MEDS: IPRATROPIUM NEB FS 0.5 MG/2.5 ML AMPUL.NEB IH SCH (19:26)
[2016-04-11 20:04] VITALS: BP 124/76
[2016-04-11] MEDS: HYDROGEN PEROXIDE 480 ML BOTTLE TP SCH (20:52)
[2016-04-12] MEDS: ALBUTEROL FS 2.5 MG/0.5 ML VIAL.NEB NEB SCH ×4 (01:17→19:30)
[2016-04-12] MEDS: IPRATROPIUM NEB FS 0.5 MG/2.5 ML AMPUL.NEB IH SCH ×4 (01:17→19:30)
[2016-04-12] MEDS: GLYTROL 1,000 ML BAG GT PRN ×2 (05:46→21:00)
[2016-04-12 08:29] VITALS: BP 120/75
[2016-04-12] MEDS: ESOMEPRAZOLE MAG TRIHYDRATE 20 MG CAPSULE.DR GT SCH (09:00)
[2016-04-12] MEDS: LORATADINE 10 MG TABLET GT SCH (09:00)
[2016-04-12] MEDS ORDERED: PANTOPRAZOLE 40 MG/PACK PACK GT SCH (09:00)
[2016-04-12] MEDS: ASCORBIC ACID 500 MG TABLET GT SCH (09:00)
[2016-04-12] MEDS ORDERED: HYDROGEL DRESSING 90 GM TUBE TP SCH (09:00)
[2016-04-12] MEDS: MULTIVITAMINS,THERAPEUTIC 1 UDTAB TABLET PO SCH (09:00)
[2016-04-12] MEDS: LACTOBACILLUS RHAMNOSUS GG 1 EACH CAP.SPRINK GT SCH ×2 (09:00→17:44)
[2016-04-12] MEDS ORDERED: [UNRECOGNIZED DRUG - SUPPLY] TP SCH (09:00)
[2016-04-12] MEDS: CADEXOMER IODINE 40 GM TUBE TP SCH ×2 (10:30)
[2016-04-12] MEDS: [UNRECOGNIZED DRUG - SUPPLY] TP SCH (10:30)
[2016-04-12] MEDS: HYDROGEN PEROXIDE 480 ML BOTTLE TP SCH ×2 (10:30→21:01)
[2016-04-12] MEDS: [UNRECOGNIZED DRUG - SUPPLY] TP SCH (10:30)
[2016-04-12 14:56] VITALS: BP 121/76
[2016-04-12 17:10] VITALS: BP 115/72
[2016-04-12 20:04] VITALS: BP 124/78
[2016-04-13] MEDS: IPRATROPIUM NEB FS 0.5 MG/2.5 ML AMPUL.NEB IH SCH ×4 (00:39→19:30)
[2016-04-13] MEDS: ALBUTEROL FS 2.5 MG/0.5 ML VIAL.NEB NEB SCH ×4 (00:39→19:30)
[2016-04-13 07:49] VITALS: BP 110/73
[2016-04-13] MEDS: HYDROGEN PEROXIDE 480 ML BOTTLE TP SCH ×2 (09:00→21:54)
[2016-04-13] MEDS: LORATADINE 10 MG TABLET GT SCH (09:00)
[2016-04-13] MEDS: [UNRECOGNIZED DRUG - SUPPLY] TP SCH ×2 (09:00→21:53)
[2016-04-13] MEDS: [UNRECOGNIZED DRUG - SUPPLY] TP SCH ×2 (09:00→21:53)
[2016-04-13] MEDS: CADEXOMER IODINE 40 GM TUBE TP SCH ×2 (09:00)
[2016-04-13] MEDS: PROSOURCE / PROSTAT (PYXIS) 30 ML UDC GT SCH ×2 (09:49→16:43)
[2016-04-13] MEDS: LACTOBACILLUS RHAMNOSUS GG 1 EACH CAP.SPRINK GT SCH ×2 (09:49→16:43)
[2016-04-13] MEDS: ASCORBIC ACID 500 MG TABLET GT SCH (09:49)
[2016-04-13] MEDS: MULTIVITAMINS,THERAPEUTIC 1 UDTAB TABLET PO SCH (09:49)
[2016-04-13] MEDS: ESOMEPRAZOLE MAG TRIHYDRATE 20 MG CAPSULE.DR GT SCH (09:49)
[2016-04-13] MEDS: GLYTROL 1,000 ML BAG GT PRN ×2 (10:02→23:26)
[2016-04-13] MEDS ORDERED: CADEXOMER IODINE 40 GM TUBE TP PRN (12:00)
[2016-04-13] MEDS ORDERED: Z GUARD REMEDY 4 OZ OINT TP PRN (12:30)
[2016-04-13] MEDS ORDERED: [UNRECOGNIZED DRUG - SUPPLY] TP PRN (13:00)
[2016-04-13] MEDS ORDERED: [UNRECOGNIZED DRUG - SUPPLY] TP PRN (13:00)
[2016-04-13] MEDS: VITAMINS A AND D 56.7 GM TUBE TP SCH ×2 (13:02→21:54)
[2016-04-13] MEDS: HYDROCODONE/APAP 5/325MG 1 EACH TABLET GT PRN (13:03)
[2016-04-13] MEDS: GENTAMICIN 0.1% OINT 15 GM TUBE TP SCH ×2 (13:03→21:54)
[2016-04-13 19:51] VITALS: BP 109/57
[2016-04-13] MEDS: POVIDONE-IODINE OINT 28.4 GM TUBE TP SCH (21:52)
[2016-04-13] MEDS: HYDROGEL DRESSING 90 GM TUBE TP SCH ×2 (21:53)
[2016-04-13] MEDS: Z GUARD REMEDY 4 OZ OINT TP SCH ×3 (21:54)
[2016-04-13] MEDS: ZINC OXIDE 56.7 GM TUBE TP SCH (21:55)
[2016-04-14] MEDS: IPRATROPIUM NEB FS 0.5 MG/2.5 ML AMPUL.NEB IH SCH ×4 (01:51→19:37)
[2016-04-14] MEDS: ALBUTEROL FS 2.5 MG/0.5 ML VIAL.NEB NEB SCH ×4 (01:51→19:37)
[2016-04-14 07:40] VITALS: BP 113/67
[2016-04-14] MEDS: HYDROGEL DRESSING 90 GM TUBE TP SCH ×4 (09:00→21:10)
[2016-04-14] MEDS: PROSOURCE / PROSTAT (PYXIS) 30 ML UDC GT SCH ×2 (09:00→17:00)
[2016-04-14] MEDS: Z GUARD REMEDY 4 OZ OINT TP SCH ×6 (09:00→21:11)
[2016-04-14] MEDS: LORATADINE 10 MG TABLET GT SCH (09:00)
[2016-04-14] MEDS: GENTAMICIN 0.1% OINT 15 GM TUBE TP SCH ×2 (09:00→21:10)
[2016-04-14] MEDS: HYDROGEN PEROXIDE 480 ML BOTTLE TP SCH ×2 (09:00→21:10)
[2016-04-14] MEDS: MULTIVITAMINS,THERAPEUTIC 1 UDTAB TABLET GT SCH (09:00)
[2016-04-14] MEDS: VITAMINS A AND D 56.7 GM TUBE TP SCH ×2 (09:00→21:11)
[2016-04-14] MEDS: ESOMEPRAZOLE MAG TRIHYDRATE 20 MG CAPSULE.DR GT SCH (09:00)
[2016-04-14] MEDS: ZINC OXIDE 56.7 GM TUBE TP SCH ×2 (09:00→21:11)
[2016-04-14] MEDS: LACTOBACILLUS RHAMNOSUS GG 1 EACH CAP.SPRINK GT SCH ×2 (09:00→17:00)
[2016-04-14] MEDS: CADEXOMER IODINE 40 GM TUBE TP SCH ×2 (09:00→11:00)
[2016-04-14] MEDS: ASCORBIC ACID 500 MG TABLET GT SCH (09:00)
[2016-04-14] MEDS: [UNRECOGNIZED DRUG - SUPPLY] TP SCH ×2 (09:00→21:10)
[2016-04-14] MEDS: [UNRECOGNIZED DRUG - SUPPLY] TP SCH ×2 (09:00→21:10)
[2016-04-14] MEDS: POVIDONE-IODINE OINT 28.4 GM TUBE TP SCH ×2 (09:00→21:10)
[2016-04-14] MEDS ORDERED: MAGNESIUM HYDROXIDE 30 ML UDC GT PRN (12:00)
[2016-04-14] MEDS: HYDROCODONE/APAP 5/325MG 1 EACH TABLET GT PRN ×2 (12:28→21:00)
[2016-04-14 19:52] VITALS: BP 105/67
[2016-04-15] MEDS: IPRATROPIUM NEB FS 0.5 MG/2.5 ML AMPUL.NEB IH SCH ×3 (01:11→14:00)
[2016-04-15] MEDS: ALBUTEROL FS 2.5 MG/0.5 ML VIAL.NEB NEB SCH ×3 (01:12→14:00)
[2016-04-15] MEDS: GLYTROL 1,000 ML BAG GT PRN (04:45)
[2016-04-15 07:39] VITALS: BP 114/72
[2016-04-15] MEDS: POVIDONE-IODINE OINT 28.4 GM TUBE TP SCH (09:00)
[2016-04-15] MEDS: GENTAMICIN 0.1% OINT 15 GM TUBE TP SCH (09:00)
[2016-04-15] MEDS: Z GUARD REMEDY 4 OZ OINT TP SCH ×3 (09:00)
[2016-04-15] MEDS: [UNRECOGNIZED DRUG - SUPPLY] TP SCH (09:00)
[2016-04-15] MEDS: VITAMINS A AND D 56.7 GM TUBE TP SCH (09:00)
[2016-04-15] MEDS: CADEXOMER IODINE 40 GM TUBE TP SCH ×2 (09:00)
[2016-04-15] MEDS: HYDROGEN PEROXIDE 480 ML BOTTLE TP SCH (09:00)
[2016-04-15] MEDS: [UNRECOGNIZED DRUG - SUPPLY] TP SCH (09:00)
[2016-04-15] MEDS: ZINC OXIDE 56.7 GM TUBE TP SCH (09:00)
[2016-04-15] MEDS: HYDROGEL DRESSING 90 GM TUBE TP SCH ×2 (09:00)
[2016-04-15] MEDS: LACTOBACILLUS RHAMNOSUS GG 1 EACH CAP.SPRINK GT SCH ×2 (09:43→16:38)
[2016-04-15] MEDS: PROSOURCE / PROSTAT (PYXIS) 30 ML UDC GT SCH ×2 (09:43→16:38)
[2016-04-15] MEDS: LORATADINE 10 MG TABLET GT SCH (09:43)
[2016-04-15] MEDS: ESOMEPRAZOLE MAG TRIHYDRATE 20 MG CAPSULE.DR GT SCH (09:43)
[2016-04-15] MEDS: MULTIVITAMINS,THERAPEUTIC 1 UDTAB TABLET GT SCH (09:43)
[2016-04-15] MEDS: ASCORBIC ACID 500 MG TABLET GT SCH (09:43)
[2016-04-15] MEDS: HYDROCODONE/APAP 5/325MG 1 EACH TABLET GT PRN (09:44)
== END 2016-04-15 20:43 | disposition short-term general hospital (02) | DRG 133 ==
LOC: SA 04-11 12:01
PROVIDERS: ADMIT Internal Medicine; ATTEND Internal Medicine
DX: J96.90 Respiratory failure, unspecified, unspecified whether with hypoxia or hypercapnia (principal); E43 Unspecified severe protein-calorie malnutrition; G93.40 Encephalopathy, unspecified; J18.9 Pneumonia, unspecified organism; R53.2 Functional quadriplegia; Z93.0 Tracheostomy status; K70.30 Alcoholic cirrhosis of liver without ascites; L89.90 Pressure ulcer of unspecified site, unspecified stage; R13.10 Dysphagia, unspecified; D64.9 Anemia, unspecified; N39.0 Urinary tract infection, site not specified
CPT/HCPCS: 31720; 71010-TC; 86580-TC; 87081-TC; 94640-TC; 94664-TC; 94799-TC; A4623; A6248; A6253; A6402; A7526